=== PATIENT | female | born 1980 | race American Indian/Alaskan Native ===

== ENCOUNTER 2019-01-14 15:26 | Inpatient (IN) | payer OTHER ==
--- NOTE | 2019-01-14 15:38 | Event Note ---
ED Screening Note Date of service: 01/14/19 Time: 15:37 ED Screening Note: 38 y o female presents with rectal pain x 5 days thast getting worse pt states unable to sit down due to pain no BM in 5 days This initial assessment/diagnostic orders/clinical plan/treatment(s) is/are subject to change based on patients health status, clinical progression and re- assessment by fellow clinical providers in the ED. Further treatment and workup at subsequent clinical providers discretion. Patient/guardian urged not to elope from the ED as their condition may be serious if not clinically assessed and managed. Initial orders include: ACC eval
[2019-01-14] MEDS ORDERED: TORADOL IV ONE (16:55)
--- NOTE | 2019-01-14 17:06 | Emergency Department Report ---
ED General Adult HPI - General Chief complaint: Rectal Pain Stated complaint: HEMORRHOIDS/PAIN Time Seen by Provider: 01/14/19 15:36 Source: patient Mode of arrival: Ambulatory Limitations: No Limitations - History of Present Illness Initial comments: 38-year-old obese female with a history of a hysterectomy presents to the hospital complaints of rectal pain and hemorrhoids. Patient states that "hemorrhoid" occurred Tue and seemed to resolve by i.e. 4 days ago. Yesterday hugo hemorrhoid returned and was more painful and increase in size. Pain is rated 10/10 in intensity, constant, worse with palpation and direct pressure. Patient states she has been eating very little and only drink of fluids because she is afraid to have a bowel movement. She has tried various [id number] medications topical medication including preparation H regular and maximum strength, cleaning wipes, lidocaine without relief. Patient reports minimum bleeding. Last hemorrhoid was over 19 years ago with . She denies receptive anal intercourse. Patient presents with elevated blood pressure and denies previous history but also states she is in a lot of pain. Pt complains of intermittent sweating in the mornings since Tuesday but no rep orts of fever. Severity scale (0 -10): 10 - Related Data Allergies Allergy/AdvReac Type Severity Reaction Status Date / Time No Known Allergies Allergy Verified 01/14/19 17:45 ED Review of Systems ROS: Stated complaint: HEMORRHOIDS/PAIN Other details as noted in HPI Comment: All other systems reviewed and negative ED Past Medical Hx - Past Medical History Previous Medical History?: No - Surgical History Past Surgical History?: Yes Additional Surgical History: hysterectomy - Social History Smoking Status: Never Smoker Substance Use Type: Marijuana ED Physical Exam - General Limitations: No Limitations - Other Other exam information: General: No acute distress Head: Atraumatic Eyes: Normal appearance, Pupils equal and reactive to light, extraocular movements intact ENT: Normal oropharynx Neck: Normal appearance, no posterior or midline tenderness, no meningismus Chest: Clear to auscultation bilaterally, no wheezes, rales, or crackles CV: Regular rate and rhythm Abdomen: soft, nontender, nondistended, no rebound or guarding Rectal: Large hemorrhoid at 12 o'clock position that is pink and tender to palpation and soft. No active bleeding. Skin tag noted at lower anal area. Back: Nontender Extremity: Normal inspection, full range of motion, nontender Neuro: Alert and oriented 3, speech clear, no gross motor or sensory deficit Skin: No rash, redness, warmth ED Course Vital Signs 01/14/19 01/14/19 01/14/19 15:37 16:39 17:14 Temperature 99.7 F H Pulse Rate 118 H 112 H Respiratory 18 20 18 Rate Blood Pressure 191/121 Blood Pressure 175/106 167/99 [Right] O2 Sat by Pulse 100 95 99 Oximetry 01/14/19 01/14/19 17:32 17:51 Temperature 100.8 F H Pulse Rate 82 Respiratory 18 18 Rate Blood Pressure Blood Pressure 146/86 138/97 [Right] O2 Sat by Pulse 100 98 Oximetry - Consultations Consultation #1: 01/14/19 20:14 Dr. Anna chung consulted for I and D of perianal abscess during admission ED Medical Decision Making - Lab Data Result diagrams: 01/14/19 17:06 01/14/19 17:06 Lab Results 01/14/19 01/14/19 01/14/19 Range/Units 17:06 17:06 17:35 WBC 25.7 H (4.5-11.0) K/mm3 RBC 4.67 (3.65-5.03) M/mm3 Hgb 13.6 (10.1-14.3) gm/dl Hct 39.7 (30.3-42.9) % MCV 85 (79-97) fl MCH 29 (28-32) pg MCHC 34 (30-34) % RDW 13.3 (13.2-15.2) % Plt Count 402 (140-440) K/mm3 Add Manual Diff Complete Total Counted 200 Seg Neuts % (Manual) 85.0 H (40.0-70.0) % Band Neutrophils % 2.0 % Lymphocytes % (Manual) 7.0 L (13.4-35.0) % Reactive Lymphs % (Man) 0 % Monocytes % (Manual) 6.0 (0.0-7.3) % Eosinophils % (Manual) 0 (0.0-4.3) % Basophils % (Manual) 0 (0.0-1.8) % Metamyelocytes % 0 % Myelocytes % 0 % Promyelocytes % 0 % Blast Cells % 0 % Nucleated RBC % Not Reportable Seg Neutrophils # Man 21.8 H (1.8-7.7) K/mm3 Band Neutrophils # 0.5 K/mm3 Lymphocytes # (Manual) 1.8 (1.2-5.4) K/mm3 Abs React Lymphs (Man) 0.0 K/mm3 Monocytes # (Manual) 1.5 H (0.0-0.8) K/mm3 Eosinophils # (Manual) 0.0 (0.0-0.4) K/mm3 Basophils # (Manual) 0.0 (0.0-0.1) K/mm3 Metamyelocytes # 0.0 K/mm3 Myelocytes # 0.0 K/mm3 Promyelocytes # 0.0 K/mm3 Blast Cells # 0.0 K/mm3 WBC Morphology Not Reportable Hypersegmented Neuts Not Reportable Hyposegmented Neuts Not Reportable Hypogranular Neuts Not Reportable Smudge Cells Not Reportable Toxic Granulation Not Reportable Toxic Vacuolation Not Reportable Dohle Bodies Not Reportable Pelger-Huet Anomaly Not Reportable Fe Rods Not Reportable Platelet Estimate Consistent w auto Clumped Platelets Not Reportable Plt Clumps, EDTA Not Reportable Large Platelets Few Giant Platelets Few Platelet Satelliting Not Reportable Plt Morphology Comment Not Reportable RBC Morphology Not Reportable Dimorphic RBCs Not Reportable Polychromasia Not Reportable Hypochromasia Not Reportable Poikilocytosis Few Anisocytosis Not Reportable Microcytosis Not Reportable Macrocytosis Not Reportable Spherocytes Not Reportable Pappenheimer Bodies Not Reportable Sickle Cells Not Reportable Target Cells Rare Tear Drop Cells Not Reportable Ovalocytes Few Helmet Cells Not Reportable Gleason-Aspen Bodies Not Reportable Emory Rings Not Reportable Romaine Cells Few Bite Cells Not Reportable Crenated Cell Not Reportable Elliptocytes Not Reportable Acanthocytes (Spur) Not Reportable Rouleaux Not Reportable Hemoglobin C Crystals Not Reportable Schistocytes Not Reportable Malaria parasites Not Reportable Buddy Bodies Not Reportable Hem Pathologist Commnt No VBG pH (7.320-7.420) Sodium 136 L (137-145) mmol/L Potassium 3.9 (3.6-5.0) mmol/L Chloride 95.9 L (98-107) mmol/L Carbon Dioxide 27 (22-30) mmol/L Anion Gap 17 mmol/L BUN 6 L (7-17) mg/dL Creatinine 0.9 (0.7-1.2) mg/dL Estimated GFR > 60 ml/min BUN/Creatinine Ratio 7 % Glucose 132 H (65-100) mg/dL Lactic Acid 1.10 (0.7-2.0) mmol/L Calcium 9.7 (8.4-10.2) mg/dL 01/14/19 Range/Units 17:35 WBC (4.5-11.0) K/mm3 RBC (3.65-5.03) M/mm3 Hgb (10.1-14.3) gm/dl Hct (30.3-42.9) % MCV (79-97) fl MCH (28-32) pg MCHC (30-34) % RDW (13.2-15.2) % Plt Count (140-440) K/mm3 Add Manual Diff Total Counted Seg Neuts % (Manual) (40.0-70.0) % Band Neutrophils % % Lymphocytes % (Manual) (13.4-35.0) % Reactive Lymphs % (Man) % Monocytes % (Manual) (0.0-7.3) % Eosinophils % (Manual) (0.0-4.3) % Basophils % (Manual) (0.0-1.8) % Metamyelocytes % % Myelocytes % % Promyelocytes % % Blast Cells % % Nucleated RBC % Seg Neutrophils # Man (1.8-7.7) K/mm3 Band Neutrophils # K/mm3 Lymphocytes # (Manual) (1.2-5.4) K/mm3 Abs React Lymphs (Man) K/mm3 Monocytes # (Manual) (0.0-0.8) K/mm3 Eosinophils # (Manual) (0.0-0.4) K/mm3 Basophils # (Manual) (0.0-0.1) K/mm3 Metamyelocytes # K/mm3 Myelocytes # K/mm3 Promyelocytes # K/mm3 Blast Cells # K/mm3 WBC Morphology Hypersegmented Neuts Hyposegmented Neuts Hypogranular Neuts Smudge Cells Toxic Granulation Toxic Vacuolation Dohle Bodies Pelger-Huet Anomaly Fe Rods Platelet Estimate Clumped Platelets Plt Clumps, EDTA Large Platelets Giant Platelets Platelet Satelliting Plt Morphology Comment RBC Morphology Dimorphic RBCs Polychromasia Hypochromasia Poikilocytosis Anisocytosis Microcytosis Macrocytosis Spherocytes Pappenheimer Bodies Sickle Cells Target Cells Tear Drop Cells Ovalocytes Helmet Cells Gleason-Aspen Bodies Emory Rings [place] Cells Bite Cells Crenated Cell Elliptocytes Acanthocytes (Spur) Rouleaux Hemoglobin C Crystals Schistocytes Malaria parasites Buddy Bodies Hem Pathologist Commnt VBG pH 7.458 H (7.320-7.420) Sodium (137-145) mmol/L Potassium (3.6-5.0) mmol/L Chloride (98-107) mmol/L Carbon Dioxide (22-30) mmol/L Anion Gap mmol/L BUN (7-17) mg/dL Creatinine (0.7-1.2) mg/dL Estimated GFR ml/min BUN/Creatinine Ratio % Glucose (65-100) mg/dL Lactic Acid (0.7-2.0) mmol/L Calcium (8.4-10.2) mg/dL - EKG Data -: EKG Interpreted by [facility] EKG shows normal: sinus rhythm (q), axis (qrs 14), QRS complexes (qrsd 14), ST-T waves (no stemi) Rate: normal (89) - Radiology Data Radiology results: report reviewed CT abdomen pelvis w con INDICATION / CLINICAL INFORMATION: anal/rectal abscess. TECHNIQUE: Axial CT imaging of abdomen and pelvis was obtained with IV contrast. Coronal and sagittal reformatted imaging obtained and reviewed. All CT scans at this location are performed using CT dose reduction for ALARA by means of automated exposure control. COMPARISON: None available. FINDINGS: CT abdomen with contrast demonstrates grossly normal appearance of the liver, spleen, pancreas, kidneys, and adrenal glands. No gallbladder abnormality identified. CT scan of the pelvis demonstrates a low-density mass surrounding the anus consistent with perianal abscess. Abscess measures approximately 6 cm in diameter. There is prominent inflammatory change in the bilateral fat adjacent to the abscess. The remainder of the pelvis is unremarkable. No pelvic mass or free fluid identified. Mild inguinal adenopathy is noted within likely reactive from the perianal abscess. Visualized lung bases are grossly clear. No significant skeletal abnormality. IMPRESSION: 1. . Perianal abscess measuring approximately 6 cm. 2. Mild bilateral inguinal adenopathy, most likely reactive. - Medical Decision Making Patient with perianal abscess requiring drainage and significant leukocytosis. Normal Lactic acid and blood pressure however with no signs of septic shock. Patient treated with vancomycin and Zosyn. Gen. surgery consultation for drainage of perianal abscess. Patient treated with Toradol, Dilaudid, and Zofra n for pain. BP improving with pain control. - Differential Diagnosis hemorrhoid, rectal abscess, anal abscess Critical Care Time: No Critical care attestation.: If time is entered above; I have spent that time in minutes in the direct care of this critically ill patient, excluding procedure time. ED Disposition Clinical Impression: Perianal abscess, Sepsis, Anal pain Disposition: [id number] OP ADMIT IP TO THIS HOSP Is pt being admited?: Yes Condition: Stable Time of Disposition: 20:13 (Dr claudio/hosp)
[2019-01-14 17:18] LABS: Hematocrit 39.7 % (30.3-42.9); Hemoglobin 13.6 gm/dl (10.1-14.3); Mean Corpuscular HGB Conc 34 % (30-34); Mean Corpuscular Volume 85 fl (79-97); Platelet Count 402 K/mm3 (140-440); Red Blood Count 4.67 M/mm3 (3.65-5.03); Red Cell Distribution Width 13.3 % (13.2-15.2)
[2019-01-14] MEDS ORDERED: NACL 0.9% 1000 ML IV ONE (17:28)
[2019-01-14] MEDS ORDERED: VANCOMYCIN/NS 1 GM/250 ML 1 GM/250 ML BAG IV ONE (17:30)
[2019-01-14] MEDS ORDERED: ZOSYN/NS 4.5GM/100ML 4.5 GM/100 ML VIAL IV ONE (17:30)
[2019-01-14 17:38] LABS: BUN/Creatinine Ratio 7; Blood Urea Nitrogen 6 mg/dL (7-17); Calcium 9.7 mg/dL (8.4-10.2); Hemolysis Index 16
[2019-01-14] MEDS ORDERED: DILAUDID ONE (17:40)
[2019-01-14] MEDS ORDERED: DILAUDID IV ONE (17:53)
[2019-01-14 18:08] LABS: Band Neutrophils # (Manual) 0.5 K/mm3; Basophils % (Manual) 0 % (0.0-1.8); Eosinophils % (Manual) 0 % (0.0-4.3); Poikilocytosis Few; Total Cells Counted 200
[2019-01-14 18:09] LABS: Burr Cells Few; Giant Platelets Few; Large Platelets Few; Ovalocytes Few; Platelet Estimate Consistent w Auto; Target Cells Rare
[2019-01-14] MEDS ORDERED: TYLENOL PO ONE (18:11)
--- NOTE | 2019-01-14 19:54 | Cat Scan Report ---
CT abdomen pelvis w con INDICATION / CLINICAL INFORMATION: anal/rectal abscess. TECHNIQUE: Axial CT imaging of abdomen and pelvis was obtained with IV contrast. Coronal and sagittal reformatte d imaging obtained and reviewed. All CT scans at this location are performed using CT dose reduction for ALARA by means of automated exposure control. COMPARISON: None available. FINDINGS: CT abdomen with contrast demonstrates grossly normal appearance of the liver, spleen, pancreas, kidne ys, and adrenal glands. No gallbladder abnormality identified. CT scan of the pelvis demonstrates a low-density mass surrounding the anus consistent with perianal a bscess. Abscess measures approximately 6 cm in diameter. There is prominent inflammatory change in th e bilateral fat adjacent to the abscess. The remainder of the pelvis is unremarkable. No pelvic mass or free fluid identified. Mild inguinal a denopathy is noted within likely reactive from the perianal abscess. Visualized lung bases are grossly clear. No significant skeletal abnormality. IMPRESSION: 1. . Perianal abscess measuring approximately 6 cm. 2. Mild bilateral inguinal adenopathy, most likely reactive. Signer Name: Nataly Turner MD Signed: 01/14/2019 7:49 PM Workstation Name: [id number]
[2019-01-14] MEDS ORDERED: ASPIRIN PO ONE (20:09)
[2019-01-14] MEDS ORDERED: ZOFRAN IV PRN (20:11)
[2019-01-14] MEDS ORDERED: TYLENOL PO PRN (20:11)
[2019-01-14] MEDS ORDERED: PERCOCET 5/325 PO PRN (20:11)
[2019-01-14] MEDS ORDERED: SODIUM CHLORIDE FLUSH SYRINGE 10 ML IV PRN (20:11)
--- NOTE | 2019-01-14 20:11 | History and Physical Report ---
History of Present Illness Date of examination: 01/14/19 Date of admission: 01/14/19 Chief complaint: Severe pain in the perianal area along with swelling . History of present illness: 38-year-old obese female with a history of a hysterectomy presents to the hospital complaints of rectal pain and hemorrhoids.Patient complaints of Parirectal swelling which she thinks is thrombosed Hemorrhoid. Has a fluctuant mass c/w abscess on perianal area.Low grade fever present.Pain is 10/10. Past Medical History Previous Medical History?: No Surgical History Past Surgical History?: Yes Additional Surgical History: hysterectomy Family History HtN Social History Smoking Status: Never Smoker Substance Use Type: Marijuana Review of Systems ROS: Stated complaint: HEMORRHOIDS/PAIN Other details as noted in HPI All other systems reviewed and negative Medications and Allergies Allergies Allergy/AdvReac Type Severity Reaction Status Date / Time No Known Allergies Allergy Verified 01/14/19 17:45 Exam - Constitutional Vitals: Temp Pulse Resp BP Pulse Ox 100.8 F H 82 18 138/97 98 01/14/19 17:51 01/14/19 17:51 01/14/19 17:51 01/14/19 17:51 01/14/19 17:51 General appearance: Present: no acute distress, well-nourished - EENT Eyes: Present: PERRL ENT: hearing intact, clear oral mucosa - Neck Neck: Present: supple, normal ROM - Respiratory Respiratory effort: normal Respiratory: bilateral: CTA - Cardiovascular Heart rate: 78 Heart Sounds: Present: S1 & S2. Absent: rub, click - Extremities Extremities: no ischemia, pulses symmetrical, No edema Peripheral Pulses: within normal limits - Abdominal General gastrointestinal: Present: soft, non-tender, non-distended, normal bowel sounds, other Female genitourinary: Present: normal - Integumentary Integumentary: Present: clear, warm, dry - Musculoskeletal Musculoskeletal: gait normal, strength equal bilaterally - Psychiatric Psychiatric: appropriate mood/affect, intact judgment & insight - Neurologic Neurologic: CNII-XII intact, moves all extremities Results - Labs CBC & Chem 7: 01/15/19 04:23 01/15/19 04:23 Labs: Laboratory Last Values WBC 25.7 K/mm3 (4.5-11.0) H 01/14/19 17:06 RBC 4.67 M/mm3 (3.65-5.03) 01/14/19 17:06 Hgb 13.6 gm/dl (10.1-14.3) 01/14/19 17:06 Hct 39.7 % (30.3-42.9) 01/14/19 17:06 MCV 85 fl (79-97) 01/14/19 17:06 MCH 29 pg (28-32) 01/14/19 17:06 MCHC 34 % (30-34) 01/14/19 17:06 RDW 13.3 % (13.2-15.2) 01/14/19 17:06 Plt Count 402 K/mm3 (140-440) 01/14/19 17:06 Add Manual Diff Complete 01/14/19 17:06 Total Counted 200 01/14/19 17:06 Seg Neuts % (Manual) 85.0 % (40.0-70.0) H 01/14/19 17:06 2.0 % 01/14/19 17:06 7.0 % (13.4-35.0) L 01/14/19 17:06 Reactive Lymphs % (Man) 0 % 01/14/19 17:06 6.0 % (0.0-7.3) 01/14/19 17:06 0 % (0.0-4.3) 01/14/19 17:06 0 % (0.0-1.8) 01/14/19 17:06 0 % 01/14/19 17:06 0 % 01/14/19 17:06 0 % 01/14/19 17:06 0 % 01/14/19 17:06 Nucleated RBC % Not Reportable 01/14/19 17:06 Seg Neutrophils # Man 21.8 K/mm3 (1.8-7.7) H 01/14/19 17:06 Band Neutrophils # 0.5 K/mm3 01/14/19 17:06 1.8 K/mm3 (1.2-5.4) 01/14/19 17:06 Abs React Lymphs (Man) 0.0 K/mm3 01/14/19 17:06 1.5 K/mm3 (0.0-0.8) H 01/14/19 17:06 0.0 K/mm3 (0.0-0.4) 01/14/19 17:06 0.0 K/mm3 (0.0-0.1) 01/14/19 17:06 0.0 K/mm3 01/14/19 17:06 0.0 K/mm3 01/14/19 17:06 0.0 K/mm3 01/14/19 17:06 Blast Cells # 0.0 K/mm3 01/14/19 17:06 WBC Morphology Not Reportable 01/14/19 17:06 Hypersegmented Neuts Not Reportable 01/14/19 17:06 Hyposegmented Neuts Not Reportable 01/14/19 17:06 Hypogranular Neuts Not Reportable 01/14/19 17:06 Not Reportable 01/14/19 17:06 Not Reportable 01/14/19 17:06 Not Reportable 01/14/19 17:06 Not Reportable 01/14/19 17:06 Not Reportable 01/14/19 17:06 Not Reportable 01/14/19 17:06 Consistent w auto 01/14/19 17:06 Not Reportable 01/14/19 17:06 Plt Clumps, EDTA Not Reportable 01/14/19 17:06 Few 01/14/19 17:06 Few 01/14/19 17:06 Not Reportable 01/14/19 17:06 Plt Morphology Comment Not Reportable 01/14/19 17:06 RBC Morphology Not Reportable 01/14/19 17:06 Dimorphic RBCs Not Reportable 01/14/19 17:06 Not Reportable 01/14/19 17:06 Not Reportable 01/14/19 17:06 Few 01/14/19 17:06 Not Reportable 01/14/19 17:06 Not Reportable 01/14/19 17:06 Not Reportable 01/14/19 17:06 Not Reportable 01/14/19 17:06 Not Reportable 01/14/19 17:06 Not Reportable 01/14/19 17:06 Rare 01/14/19 17:06 Not Reportable 01/14/19 17:06 Few 01/14/19 17:06 Not Reportable 01/14/19 17:06 Not Reportable 01/14/19 17:06 Not Reportable 01/14/19 17:06 Few 01/14/19 17:06 Not Reportable 01/14/19 17:06 Not Reportable 01/14/19 17:06 Not Reportable 01/14/19 17:06 Acanthocytes (Spur) Not Reportable 01/14/19 17:06 Rouleaux Not Reportable 01/14/19 17:06 Not Reportable 01/14/19 17:06 Not Reportable 01/14/19 17:06 Not Reportable 01/14/19 17:06 Not Reportable 01/14/19 17:06 Hem Pathologist Commnt No 01/14/19 17:06 VBG pH 7.458 (7.320-7.420) H 01/14/19 17:35 Sodium 136 mmol/L (137-145) L 01/14/19 17:06 Potassium 3.9 mmol/L (3.6-5.0) 01/14/19 17:06 Chloride 95.9 mmol/L (98-107) L 01/14/19 17:06 Carbon Dioxide 27 mmol/L (22-30) 01/14/19 17:06 17 mmol/L 01/14/19 17:06 BUN 6 mg/dL (7-17) L 01/14/19 17:06 0.9 mg/dL (0.7-1.2) 01/14/19 17:06 Estimated GFR > 60 ml/min 01/14/19 17:06 7 % 01/14/19 17:06 Glucose 132 mg/dL (65-100) H 01/14/19 17:06 Lactic Acid 1.10 mmol/L (0.7-2.0) 01/14/19 17:35 Calcium 9.7 mg/dL (8.4-10.2) 01/14/19 17:06 - Imaging and Cardiology CT scan - abdomen: report reviewed Imaging and Cardiology: CT Abdomen CT scan of the pelvis demonstrates a low-density mass surrounding the anus consistent with perianal abscess. Abscess measures approximately 6 cm in diameter. There is prominent inflammatory change in the bilateral fat adjacent to the abscess. The remainder of the pelvis is unremarkable. No pelvic mass or free fluid identified. Mild inguinal adenopathy is noted within likely reactive from the perianal abscess. Visualized lung bases are grossly clear. No significant skeletal abnormality. IMPRESSION: 1. . Perianal abscess measuring approximately 6 cm. 2. Mild bilateral inguinal adenopathy, most likely reactive. Assessment and Plan Advance Directives: Yes (Full code) VTE prophylaxis?: Chemical Plan of care discussed with patient/family: Yes - Patient Problems (1) Perianal abscess Current Visit: Yes Status: Acute Plan to address problem: Needs I and D under GA Strted on IV abx Unasyn and vancomycin IV Surgery consulted (2) SIRS (systemic inflammatory response syndrome) Current Visit: Yes Status: Acute Plan to address problem: Patient's clinical picture c/w SIRS Has High white count IV abx --Unasyn and IV V ancomycin for now. (3) Hyponatremia Current Visit: Yes Status: Acute Plan to address problem: Very mild Should correct with IV NS (4) Malnutrition Current Visit: Yes Status: Chronic Qualifiers: Protein-calorie malnutrition severity: moderate Plan to address problem: Dietary supplements ordered (5) DVT prophylaxis Current Visit: Yes Status: Acute Plan to address problem: SCD's for now and Gi prophylaxis
--- NOTE | 2019-01-14 20:24 | Event Note ---
Date: 01/14/[address] Smart. Pt added on to tomorrow's schedule for I&D. Resuscitate tonight. Hold Lovenox for now to minimize carlos-op bleeding tomorrow.
[2019-01-14] MEDS ORDERED: NACL 0.45% 1000 ML 1,000 ML IV SCH (23:45)
[2019-01-15] MEDS: DILAUDID IV PRN (00:08)
[2019-01-15] MEDS: SODIUM CHLORIDE FLUSH SYRINGE 10 ML IV SCH ×3 (00:09→22:28)
[2019-01-15 04:52] LABS: Hematocrit 35.1 % (30.3-42.9); Hemoglobin 11.8 gm/dl (10.1-14.3); Mean Corpuscular HGB Conc 34 % (30-34); Mean Corpuscular Volume 86 fl (79-97); Platelet Count 375 K/mm3 (140-440); Red Cell Distribution Width 13.3 % (13.2-15.2)
[2019-01-15 05:18] LABS: Alanine Aminotransferase 11 units/L (7-56); BUN/Creatinine Ratio 6; Blood Urea Nitrogen 5 mg/dL (7-17); Calcium 8.7 mg/dL (8.4-10.2); Hemolysis Index 0
[2019-01-15 06:11] LABS: Basophils % (Manual) 0 % (0.0-1.8); Platelet Estimate Consistent w Auto; RBC Morphology Normal; Total Cells Counted 100
--- NOTE | 2019-01-15 08:32 | Progress Note ---
Assessment and Plan Assessment and plan: 38-year-old obese female with a history of a hysterectomy presents to the hospital complaints of rectal pain and swelling perirectal abscess/sepsis -for I and D today, abx hemorrhoids high fiber diet recommended dvt ppx- early ambulation and scds History Interval history: c/o perirectal pain no fever no cp, no cough Hospitalist Physical - Constitutional Vitals: Temp Pulse Resp BP Pulse Ox 98.6 F 73 17 150/92 99 01/15/19 05:21 01/15/19 05:21 01/15/19 05:21 01/15/19 05:21 01/15/19 05:21 General appearance: Present: no acute distress, well-nourished - EENT Eyes: Present: PERRL ENT: hearing intact - Neck Neck: Present: normal ROM - Respiratory Respiratory: bilateral: CTA - Cardiovascular Rhythm: regular Heart Sounds: Present: S1 & S2 - Extremities Extremities: no ischemia Peripheral Pulses: within normal limits - Abdominal General gastrointestinal: soft, non-tender, other (perirectal fluctuant swelling) - Integumentary Integumentary: Present: clear, warm - Psychiatric Psychiatric: appropriate mood/affect, intact judgment & insight - Neurologic Neurologic: CNII-XII intact, moves all extremities Results - Labs CBC & Chem 7: 01/15/19 04:23 01/15/19 04:23 Labs: Laboratory Last Values WBC 24.1 K/mm3 (4.5-11.0) H 01/15/19 04:23 RBC 4.10 M/mm3 (3.65-5.03) 01/15/19 04:23 Hgb 11.8 gm/dl (10.1-14.3) 01/15/19 04:23 Hct 35.1 % (30.3-42.9) 01/15/19 04:23 MCV 86 fl (79-97) 01/15/19 04:23 MCH 29 pg (28-32) 01/15/19 04:23 MCHC 34 % (30-34) 01/15/19 04:23 RDW 13.3 % (13.2-15.2) 01/15/19 04:23 Plt Count 375 K/mm3 (140-440) 01/15/19 04:23 Add Manual Diff Complete 01/15/19 04:23 Total Counted 100 01/15/19 04:23 Seg Neuts % (Manual) 89.0 % (40.0-70.0) H 01/15/19 04:23 0 % 01/15/19 04:23 7.0 % (13.4-35.0) L 01/15/19 04:23 Reactive Lymphs % (Man) 0 % 01/15/19 04:23 3.0 % (0.0-7.3) 01/15/19 04:23 1.0 % (0.0-4.3) 01/15/19 04:23 0 % (0.0-1.8) 01/15/19 04:23 0 % 01/15/19 04:23 0 % 01/15/19 04:23 0 % 01/15/19 04:23 0 % 01/15/19 04:23 Nucleated RBC % Not Reportable 01/15/19 04:23 Seg Neutrophils # Man 21.4 K/mm3 (1.8-7.7) H 01/15/19 04:23 Band Neutrophils # 0.0 K/mm3 01/15/19 04:23 1.7 K/mm3 (1.2-5.4) 01/15/19 04:23 Abs React Lymphs (Man) 0.0 K/mm3 01/15/19 04:23 0.7 K/mm3 (0.0-0.8) 01/15/19 04:23 0.2 K/mm3 (0.0-0.4) 01/15/19 04:23 0.0 K/mm3 (0.0-0.1) 01/15/19 04:23 0.0 K/mm3 01/15/19 04:23 0.0 K/mm3 01/15/19 04:23 0.0 K/mm3 01/15/19 04:23 Blast Cells # 0.0 K/mm3 01/15/19 04:23 WBC Morphology Not Reportable 01/15/19 04:23 Hypersegmented Neuts Not Reportable 01/15/19 04:23 Hyposegmented Neuts Not Reportable 01/15/19 04:23 Hypogranular Neuts Not Reportable 01/15/19 04:23 Not Reportable 01/15/19 04:23 Not Reportable 01/15/19 04:23 Not Reportable 01/15/19 04:23 Not Reportable 01/15/19 04:23 Not Reportable 01/15/19 04:23 Not Reportable 01/15/19 04:23 Consistent w auto 01/15/19 04:23 Not Reportable 01/15/19 04:23 Plt Clumps, EDTA Not Reportable 01/15/19 04:23 Not Reportable 01/15/19 04:23 Not Reportable 01/15/19 04:23 Not Reportable 01/15/19 04:23 Plt Morphology Comment Not Reportable 01/15/19 04:23 RBC Morphology Normal 01/15/19 04:23 Dimorphic RBCs Not Reportable 01/15/19 04:23 Not Reportable 01/15/19 04:23 Not Reportable 01/15/19 04:23 Not Reportable 01/15/19 04:23 Not Reportable 01/15/19 04:23 Not Reportable 01/15/19 04:23 Not Reportable 01/15/19 04:23 Not Reportable 01/15/19 04:23 Not Reportable 01/15/19 04:23 Not Reportable 01/15/19 04:23 Not Reportable 01/15/19 04:23 Not Reportable 01/15/19 04:23 Not Reportable 01/15/19 04:23 Not Reportable 01/15/19 04:23 Not Reportable 01/15/19 04:23 Not Reportable 01/15/19 04:23 Not Reportable 01/15/19 04:23 Not Reportable 01/15/19 04:23 Not Reportable 01/15/19 04:23 Not Reportable 01/15/19 04:23 Acanthocytes (Spur) Not Reportable 01/15/19 04:23 Rouleaux Not Reportable 01/15/19 04:23 Not Reportable 01/15/19 04:23 Not Reportable 01/15/19 04:23 Not Reportable 01/15/19 04:23 Not Reportable 01/15/19 04:23 Hem Pathologist Commnt No 01/15/19 04:23 VBG pH 7.458 (7.320-7.420) H 01/14/19 17:35 Sodium 140 mmol/L (137-145) 01/15/19 04:23 Potassium 3.8 mmol/L (3.6-5.0) 01/15/19 04:23 Chloride 102.5 mmol/L (98-107) 01/15/19 04:23 Carbon Dioxide 29 mmol/L (22-30) 01/15/19 04:23 12 mmol/L 01/15/19 04:23 BUN 5 mg/dL (7-17) L 01/15/19 04:23 0.8 mg/dL (0.7-1.2) 01/15/19 04:23 Estimated GFR > 60 ml/min 01/15/19 04:23 6 % 01/15/19 04:23 Glucose 106 mg/dL (65-100) H 01/15/19 04:23 5.3 % (4-6) 01/14/19 17:06 Lactic Acid 0.90 mmol/L (0.7-2.0) 01/14/19 20:04 Calcium 8.7 mg/dL (8.4-10.2) 01/15/19 04:23 0.60 mg/dL (0.1-1.2) 01/15/19 04:23 AST 12 units/L (5-40) 01/15/19 04:23 ALT 11 units/L (7-56) 01/15/19 04:23 84 units/L (35-129) 01/15/19 04:23 6.7 g/dL (6.3-8.2) 01/15/19 04:23 3.0 g/dL (3.9-5) L 01/15/19 04:23 0.8 % 01/15/19 04:23 Active Medications - Current Medications Current Medications: Generic Name Dose Route Start Last Admin Trade Name Freq PRN Reason Stop Dose Admin Acetaminophen 650 mg 01/14/19 20:11 Tylenol PO Q4H PRN Pain MILD(1-3)/Fever >100.5/GANT Hydromorphone HCl 0.5 mg 01/14/19 20:11 01/15/19 00:08 Dilaudid IV 0.5 mg Q3H PRN Administration Pain , Severe (7-10) Sodium Chloride 1,000 mls @ 75 mls/hr 01/14/19 23:45 01/15/19 00:10 Nacl 0.45% 1000 Ml IV 75 mls/hr DIRECT NADYA Administration Ondansetron HCl 4 mg 01/14/19 20:11 Zofran IV Q3H PRN Nausea And Vomiting Oxycodone/Acetaminophen 1 tab 01/14/19 20:11 Percocet 5/325 PO Q6H PRN Pain, Moderate (4-6) Sodium Chloride 10 ml 01/14/19 22:00 01/15/19 00:09 Sodium Chloride Flush Syringe 10 Ml IV 10 ml BID NADYA Administration Sodium Chloride 10 ml 01/14/19 20:11 Sodium Chloride Flush Syringe 10 Ml IV PRN PRN LINE FLUSH
--- NOTE | 2019-01-15 08:42 | Consultation ---
History of Present Illness Consult date: 01/15/19 Reason for consult: other (perianal pain) Requesting physician: FLAVIO COLON Chief complaint: perianal pain - History of present illness History of present illness: 38yo F, healthy, presents with acute onset of perianal pain that initially began last Tuesday. It got better briefly, but then worsened a couple of days later. Has been draining blood. Had similar problem after of child in 2005. Had large hemorrhoid at that time. Denies F/C/N/V/. Past History Past Medical History: No medical history Past Surgical History: hysterectomy (robotic - 2013 - [facility]) Social history: other (occasional alcohol). denies: smoking Family history: no significant family history Medications and Allergies Allergies Allergy/AdvReac Type Severity Reaction Status Date / Time No Known Allergies Allergy Verified 01/14/19 17:45 Active Meds: Active Medications Acetaminophen (Tylenol) 650 mg PO Q4H PRN PRN Reason: Pain MILD(1-3)/Fever >100.5/GANT Hydromorphone HCl (Dilaudid) 0.5 mg IV Q3H PRN PRN Reason: Pain , Severe (7-10) Last Admin: 01/15/19 00:08 Dose: 0.5 mg Documented by: Sodium Chloride (Nacl 0.45% 1000 Ml) 1,000 mls @ 75 mls/hr IV DIRECT [facility] Last Admin: 01/15/19 00:10 Dose: 75 mls/hr Documented by: Ondansetron HCl (Zofran) 4 mg IV Q3H PRN PRN Reason: Nausea And Vomiting Oxycodone/Acetaminophen (Percocet 5/325) 1 tab PO Q6H PRN PRN Reason: Pain, Moderate (4-6) Sodium Chloride (Sodium Chloride Flush Syringe 10 Ml) 10 ml IV BID NADYA Last Admin: 01/15/19 00:09 Dose: 10 ml Documented by: Sodium Chloride (Sodium Chloride Flush Syringe 10 Ml) 10 ml IV PRN PRN PRN Reason: LINE FLUSH Review of Systems - Constitutional no fever, no chills, no sweats, no night sweats, no chronic pain - Cardiovascular no chest pain, no shortness of breath - Respiratory no cough - Gastrointestinal change in bowel habits, BRBPR, no abdominal pain, no nausea, no vomiting - Muskuloskeletal no low back pain - Integumentary no rash, no sores, no wounds Exam Vital Signs Temp Pulse Resp BP Pulse Ox 99.7 F H 118 H 18 191/121 100 01/14/19 15:37 01/14/19 15:37 01/14/19 15:37 01/14/19 15:37 01/14/19 15:37 - General physical appearance Positive: no distress, no pain, other (pleasant) - Eyes Positive: normal occular movement - Respiratory Positive: normal expansion, normal respiratory effort, clear to auscultation - Cardiovascular Rhythm: regular - Abdomen Abdomen: Present: soft. Absent: tender - Rectum Rectum: mass (large, tender mass. +bloody drainage. Smaller skin tag seen. ) - Neurologic Neurologic: alert and oriented to time, place and person, motor strength and se nsation are grossly intact - Psychiatric Psychiatric: appropriate mood/affect, intact judgment & insight, cooperative Results - Labs 01/15/19 04:23 01/15/19 04:23 Abnormal lab results 01/14/19 01/14/19 01/14/19 Range/Units 17:06 17:06 17:35 WBC 25.7 H (4.5-11.0) K/mm3 Seg Neuts % (Manual) 85.0 H (40.0-70.0) % Lymphocytes % (Manual) 7.0 L (13.4-35.0) % Seg Neutrophils # Man 21.8 H (1.8-7.7) K/mm3 Monocytes # (Manual) 1.5 H (0.0-0.8) K/mm3 VBG pH 7.458 H (7.320-7.420) Sodium 136 L (137-145) mmol/L Chloride 95.9 L (98-107) mmol/L BUN 6 L (7-17) mg/dL Glucose 132 H (65-100) mg/dL Albumin (3.9-5) g/dL 01/15/19 01/15/19 Range/Units 04:23 04:23 WBC 24.1 H (4.5-11.0) K/mm3 Seg Neuts % (Manual) 89.0 H (40.0-70.0) % Lymphocytes % (Manual) 7.0 L (13.4-35.0) % Seg Neutrophils # Man 21.4 H (1.8-7.7) K/mm3 Monocytes # (Manual) (0.0-0.8) K/mm3 VBG pH (7.320-7.420) Sodium (137-145) mmol/L Chloride (98-107) mmol/L BUN 5 L (7-17) mg/dL Glucose 106 H (65-100) mg/dL Albumin 3.0 L (3.9-5) g/dL Diabetes panel 01/14/19 01/14/19 01/15/19 Range/Units 17:06 17:06 04:23 Sodium 136 L 140 (137-145) mmol/L Potassium 3.9 3.8 (3.6-5.0) mmol/L Chloride 95.9 L 102.5 (98-107) mmol/L Carbon Dioxide 27 29 (22-30) mmol/L BUN 6 L 5 L (7-17) mg/dL Creatinine 0.9 0.8 (0.7-1.2) mg/dL Glucose 132 H 106 H (65-100) mg/dL Hemoglobin A1c 5.3 (4-6) % Calcium 9.7 8.7 (8.4-10.2) mg/dL AST 12 (5-40) units/L ALT 11 (7-56) units/L Alkaline Phosphatase 84 (35-129) units/L Total Protein 6.7 (6.3-8.2) g/dL Albumin 3.0 L (3.9-5) g/dL Calcium panel 01/14/19 01/15/19 Range/Units 17:06 04:23 Calcium 9.7 8.7 (8.4-10.2) mg/dL Albumin 3.0 L (3.9-5) g/dL Pituitary panel 01/14/19 01/15/19 Range/Units 17:06 04:23 Sodium 136 L 140 (137-145) mmol/L Potassium 3.9 3.8 (3.6-5.0) mmol/L Chloride 95.9 L 102.5 (98-107) mmol/L Carbon Dioxide 27 29 (22-30) mmol/L BUN 6 L 5 L (7-17) mg/dL Creatinine 0.9 0.8 (0.7-1.2) mg/dL Glucose 132 H 106 H (65-100) mg/dL Calcium 9.7 8.7 (8.4-10.2) mg/dL Adrenal panel 01/14/19 01/15/19 Range/Units 17:06 04:23 Sodium 136 L 140 (137-145) mmol/L Potassium 3.9 3.8 (3.6-5.0) mmol/L Chloride 95.9 L 102.5 (98-107) mmol/L Carbon Dioxide 27 29 (22-30) mmol/L BUN 6 L 5 L (7-17) mg/dL Creatinine 0.9 0.8 (0.7-1.2) mg/dL Glucose 132 H 106 H (65-100) mg/dL Calcium 9.7 8.7 (8.4-10.2) mg/dL Total Bilirubin 0.60 (0.1-1.2) mg/dL AST 12 (5-40) units/L ALT 11 (7-56) units/L Alkaline Phosphatase 84 (35-129) units/L Total Protein 6.7 (6.3-8.2) g/dL Albumin 3.0 L (3.9-5) g/dL - Imaging CT scan - abdomen: report reviewed, image reviewed CT scan - pelvis: report reviewed, image reviewed Assessment and Plan - Patient Problems (1) Perianal abscess Current Visit: Yes Status: Acute Plan to address problem: Pt stable. Pt with large abscess on CT. Will proceed to OR today. Procedure, risks, benefits discussed. All questions answered. Consent obtained. Please call with questions. time=30min
[2019-01-15] MEDS ORDERED: ZOFRAN IV PRN (08:46)
[2019-01-15] MEDS ORDERED: SUBLIMAZE IV PRN (08:46)
[2019-01-15] MEDS ORDERED: DILAUDID IV PRN (08:46)
[2019-01-15] MEDS ORDERED: XYLOCAINE MPF 2% ONE (08:49)
[2019-01-15] MEDS ORDERED: DIPRIVAN 10 MG/ML IV ONE (08:50)
[2019-01-15] MEDS ORDERED: ZEMURON IV ONE (08:50)
--- NOTE | 2019-01-15 08:50 | Anesthesia Day of Surgery ---
Anesthesia Day of Surgery - Day of Surgery Patient Examined: Yes Patient H&P Reviewed: Yes Patient is NPO: Yes
--- NOTE | 2019-01-15 08:50 | Anesthesia Consultation ---
Anesthesia Consult and Med Hx Date of service: 01/15/19 - Airway Anesthetic Teeth Evaluation: Good, Caps ROM Head & Neck: Adequate Mental/Hyoid Distance: Adequate Mallampati Class: Class II Intubation Access Assessment: Good - Pre-Operative Health Status ASA Pre-Surgery Classification: ASA2 Proposed Anesthetic Plan: General - Pulmonary Hx Asthma: No COPD: No Hx Pneumonia: No - Central Nervous System Hx Psychiatric Problems: No - Endocrine Hx End Stage Renal Disease: No - Hematic Hx Sickle Cell Disease: No - Other Systems Hx Substance Use: Yes (MJ)
[2019-01-15] MEDS ORDERED: TYLENOL PO NR (08:51)
[2019-01-15] MEDS ORDERED: VERSED IV NR (09:00)
[2019-01-15] MEDS ORDERED: NEURONTIN PO NR (09:00)
[2019-01-15] MEDS ORDERED: XYLOCAINE 1% 20 mL ONE (09:08)
[2019-01-15] MEDS ORDERED: MARCAINE-EPI 0.5%-1:200,000 INFILTRATI ONE (09:08)
[2019-01-15] MEDS ORDERED: LACTATED RINGERS 1,000 ML ONE (09:11)
[2019-01-15] MEDS: LACTATED RINGERS 1,000 ML IV SCH ×2 (09:12→17:12)
[2019-01-15] MEDS ORDERED: MARCAINE 0.5% INFILTRATI ONE ×2 (09:16→10:30)
[2019-01-15] MEDS ORDERED: MORPHINE IV NR (09:30)
[2019-01-15] MEDS ORDERED: LOVENOX SUB-Q SCH (10:00)
[2019-01-15] MEDS ORDERED: NACL 0.9% IR ONE (10:30)
[2019-01-15] MEDS ORDERED: XYLOCAINE 1% 20 mL INFILTRATI ONE (10:30)
[2019-01-15] MEDS ORDERED: PROAIR IH ONE (10:37)
[2019-01-15] MEDS ORDERED: BLOXIVERZ ONE (10:37)
[2019-01-15] MEDS ORDERED: ZOFRAN ONE (10:37)
[2019-01-15] MEDS ORDERED: QUELICIN ONE (10:37)
[2019-01-15] MEDS ORDERED: DECADRON ONE (10:37)
[2019-01-15] MEDS ORDERED: TORADOL ONE (10:37)
[2019-01-15] MEDS ORDERED: ROBINUL ONE (10:37)
--- NOTE | 2019-01-15 10:57 | Post Operative Note ---
Date of procedure: 01/15/19 (dictation: [id number]) Pre-op diagnosis: Perianal abscess Post-op diagnosis: same Findings: large abscess cavity in the posterior midline. Appears to have chronic changes. No direct connection to anus. Procedure: I&D of perianal abscess Bilateral Pudenal Nerve Block IVF 1L EBL<10cc Anesthesia: SUE Surgeon: DEBRA DALE Estimated blood loss: minimal Pathology: list (culture swabs) Specimen disposition: to lab Condition: stable Disposition: PACU
[2019-01-15] MEDS: TORADOL IV SCH ×2 (11:49→17:10)
--- NOTE | 2019-01-15 12:43 | Post Anesthesia Evaluation ---
- Post Anesthesia Evaluation Patient Participated: Yes Airway Patent: Yes Stable Respiratory Function: Yes Nausea/Vomiting: No Temp > 96.8F: Yes Pain Manageable: Yes Adequeate Hydration: Yes Anesthesia Complications: No Block Receding Appropriately: Not Applicable Patient on Ventilator: No
[2019-01-15] MEDS: ZOSYN/NS 4.5GM/100ML 4.5 GM/100 ML VIAL IV SCH ×2 (15:00→22:27)
--- NOTE | 2019-01-15 17:44 | Event Note ---
Date: 01/15/19 Routine check - pt feeling much better. Very appreciative. Explained what we found and the plan.
--- NOTE | 2019-01-15 17:54 | Operative Report ---
PREOPERATIVE DIAGNOSIS: Perianal abscess. POSTOPERATIVE DIAGNOSIS: Perianal abscess. PROCEDURES: 1. Incision and drainage of perianal abscess. 2. Bilateral pudendal nerve blocks. ATTENDING PHYSICIAN: Sidra Castillo MD ANESTHESIA: General. ESTIMATED BLOOD LOSS: Minimal. FLUIDS: 1 liter. FINDINGS: Large abscess cavity in the posterior midline, part of the skin had already broken down. The patient had chronic inflammatory changes noted within the cavity itself. The cavity came very close to the external sphincter, difficult to tell if it involves part of the sphincter. SPECIMENS: Culture swabs. DRAINS: A 1 inch Niok drain. COMPLICATIONS: None. DISPOSITION: Stable, transferred to Recovery Room. INDICATIONS: This is a 38-year-old female who presented with severe perianal pain, began a few days ago. CT scan showed a large abscess in the perianal region. The patient was assessed to be in need for I and D. Procedure, risks, benefits were explained to the patient. Risks included but were not limited to infection, bleeding, pain, injury to surrounding structures, possible need for further procedures in the future. The patient understood and consented. OPERATIVE NOTE: The patient was brought to the operating room and anesthetized on the transport bed. Once general anesthesia was established, the patient was placed in a prone position. All pressure points were well-padded. Prone jackknife position was created. Sterile prep and drape was done, time-out was called. Antibiotics had already been given on the floor. SCDs were in place. I began by performing bilateral pudendal nerve injections. I isolated where the ischial spines were on either side. Guiding with one finger, performing the internal exam and identifying the ischial spine and then my thumb on the outside pushing down to the ischial spine, I guided the needle towards the bone. Once I touched the bone, I then pulled back and injected 10 mL of local which was a combination of 0.5% Marcaine and 1% lidocaine. Please note that as I was advancing the needle I did aspirate to make sure there was no bleeding. I performed the same procedure on the other side. No blood was aspirated. The patient tolerated the procedure well. I then proceeded to examine the perianal area. She did have a moderate size skin tag in the anterior midline. No signs of any other abnormalities noted. With that skin tags she did have some mild hemorrhoidal disease. A large fluctuant mass in the posterior midline part of the skin was already broken down. I incised this area to open it up completely and I could then probe the wound. There was initial superficial cavity, but then a deeper cavity. I made sure that there was adequate communication between the two. I broke up any loculations, adhesions, etc. I opened the skin further to make sure we had wide drainage. It was difficult to tell if the external sphincter was involved in the abscess cavity. I thoroughly irrigated out the wound and then we placed a Niko 1 inch drain in that location. I placed 2 silk sutures to secure it to either side to hopefully minimize the chance that it will fall out. Skin was cleaned and dried, dressings were placed. The patient tolerated the procedure well. There were no complications. All counts were correct at the end of the case. Please note, I did take cultures of the fluid. I did not see much purulent fluid when we opened. I think a lot of it had already drained out, but I took cultures from the deep portion of the cavity. JOB# [id number] LENORA/ELISA JACKMAN
[2019-01-16] MEDS: TORADOL IV SCH ×4 (00:08→18:14)
[2019-01-16 06:39] LABS: Hematocrit 35.2 % (30.3-42.9); Hemoglobin 11.9 gm/dl (10.1-14.3); Mean Corpuscular HGB Conc 34 % (30-34); Mean Corpuscular Volume 86 fl (79-97); Platelet Count 415 K/mm3 (140-440); Red Blood Count 4.11 M/mm3 (3.65-5.03); Red Cell Distribution Width 13.2 % (13.2-15.2)
[2019-01-16] MEDS: ZOSYN/NS 4.5GM/100ML 4.5 GM/100 ML VIAL IV SCH ×3 (07:30→21:09)
[2019-01-16] MEDS ORDERED: APRESOLINE IV ONE (07:45)
[2019-01-16] MEDS ORDERED: ALUM-MAG HYDROX-SIMETH 200-200-20MG/5ML PO ONE (08:00)
[2019-01-16] MEDS ORDERED: ALUM-MAG HYDROX-SIMETH 200-200-20MG/5ML PO PRN (09:00)
--- NOTE | 2019-01-16 09:45 | Progress Note ---
Assessment and Plan - Patient Problems (1) Perianal abscess Current Visit: Yes Status: Acute Plan to address problem: Pt stable. s/p I&D of perianal abscess (01/15/19) - POD#1 - Pt appears to be doing well. WBC still elevated. May benefit from additional IV Abx. Cultures are still pending. I spoke with NIRMALCHAUNCEY this morning to get their opinion on the opt imal way to manage her wound. They will see the patient today. Rec: 1) Ambulate 2) Cont IV Abx 3) Sitz baths at least BID Please call with questions. Subjective Date of service: 01/16/19 Patient Reports: Positive: feels better (from abscess standpoint), pain is less, other (had issue with severe heartburn last night) Objective Vital Signs - 12hr 01/16/19 01/16/19 01/16/19 00:20 04:23 07:28 Temperature 98.1 F 97.6 F Pulse Rate 51 L 72 73 Respiratory 18 18 Rate Blood Pressure 192/128 Blood Pressure 156/94 169/100 [Right] O2 Sat by Pulse 93 100 Oximetry - General physical appearance no distress, no pain, other (looks well) - Respiratory normal expansion, normal respiratory effort - Psychiatric oriented to time, oriented to person, oriented to place, speech is normal, memory intact - Labs 01/16/19 05:40 01/15/19 04:23
--- NOTE | 2019-01-16 11:06 | Progress Note ---
Assessment and Plan Assessment and plan: 38-year-old obese female with a history of a hysterectomy presents to the hospital complaints of rectal pain and swelling --perirectal abscess/sepsis s/p I&D cont antibiotics,wound care Sitz baths, surgery following --hemorrhoids high fiber diet recommended --dvt ppx- early ambulation and scds Monitor closely and adjust management as needed History Interval history: Patient seen and examined medical records reviewed Patient feels better no new complaints Vital signs noted Hospitalist Physical - Constitutional Vitals: Temp Pulse Resp BP Pulse Ox 97.9 F 93 H 18 156/84 100 01/16/19 08:40 01/16/19 08:40 01/16/19 08:40 01/16/19 08:40 01/16/19 04:23 General appearance: Present: no acute distress, well-nourished, obese (morbidly obese) - EENT Eyes: Present: PERRL, EOM intact - Neck Neck: Present: supple, normal ROM - Respiratory Respiratory effort: normal Respiratory: bilateral: diminished, negative: rales, rhonchi, wheezing - Cardiovascular Rhythm: regular Heart Sounds: Present: S1 & S2 - Extremities Extremities: no ischemia, No edema - Abdominal General gastrointestinal: soft, non-tender, non-distended, normal bowel sounds - Integumentary Integumentary: Present: clear, warm - Psychiatric Psychiatric: appropriate mood/affect, cooperative - Neurologic Neurologic: moves all extremities Results - Labs CBC & Chem 7: 01/16/19 05:40 01/15/19 04:23 Labs: Laboratory Last Values WBC 25.1 K/mm3 (4.5-11.0) H 01/16/19 05:40 RBC 4.11 M/mm3 (3.65-5.03) 01/16/19 05:40 Hgb 11.9 gm/dl (10.1-14.3) 01/16/19 05:40 Hct 35.2 % (30.3-42.9) 01/16/19 05:40 MCV 86 fl (79-97) 01/16/19 05:40 MCH 29 pg (28-32) 01/16/19 05:40 MCHC 34 % (30-34) 01/16/19 05:40 RDW 13.2 % (13.2-15.2) 01/16/19 05:40 Plt Count 415 K/mm3 (140-440) 01/16/19 05:40 Add Manual Diff Complete 01/15/19 04:23 Total Counted 100 01/15/19 04:23 Seg Neuts % (Manual) 89.0 % (40.0-70.0) H 01/15/19 04:23 0 % 01/15/19 04:23 7.0 % (13.4-35.0) L 01/15/19 04:23 Reactive Lymphs % (Man) 0 % 01/15/19 04:23 3.0 % (0.0-7.3) 01/15/19 04:23 1.0 % (0.0-4.3) 01/15/19 04:23 0 % (0.0-1.8) 01/15/19 04:23 0 % 01/15/19 04:23 0 % 01/15/19 04:23 0 % 01/15/19 04:23 0 % 01/15/19 04:23 Nucleated RBC % Not Reportable 01/15/19 04:23 Seg Neutrophils # Man 21.4 K/mm3 (1.8-7.7) H 01/15/19 04:23 Band Neutrophils # 0.0 K/mm3 01/15/19 04:23 1.7 K/mm3 (1.2-5.4) 01/15/19 04:23 Abs React Lymphs (Man) 0.0 K/mm3 01/15/19 04:23 0.7 K/mm3 (0.0-0.8) 01/15/19 04:23 0.2 K/mm3 (0.0-0.4) 01/15/19 04:23 0.0 K/mm3 (0.0-0.1) 01/15/19 04:23 0.0 K/mm3 01/15/19 04:23 0.0 K/mm3 01/15/19 04:23 0.0 K/mm3 01/15/19 04:23 Blast Cells # 0.0 K/mm3 01/15/19 04:23 WBC Morphology Not Reportable 01/15/19 04:23 Hypersegmented Neuts Not Reportable 01/15/19 04:23 Hyposegmented Neuts Not Reportable 01/15/19 04:23 Hypogranular Neuts Not Reportable 01/15/19 04:23 Not Reportable 01/15/19 04:23 Not Reportable 01/15/19 04:23 Not Reportable 01/15/19 04:23 Not Reportable 01/15/19 04:23 Not Reportable 01/15/19 04:23 Not Reportable 01/15/19 04:23 Consistent w auto 01/15/19 04:23 Not Reportable 01/15/19 04:23 Plt Clumps, EDTA Not Reportable 01/15/19 04:23 Not Reportable 01/15/19 04:23 Not Reportable 01/15/19 04:23 Not Reportable 01/15/19 04:23 Plt Morphology Comment Not Reportable 01/15/19 04:23 RBC Morphology Normal 01/15/19 04:23 Dimorphic RBCs Not Reportable 01/15/19 04:23 Not Reportable 01/15/19 04:23 Not Reportable 01/15/19 04:23 Not Reportable 01/15/19 04:23 Not Reportable 01/15/19 04:23 Not Reportable 01/15/19 04:23 Not Reportable 01/15/19 04:23 Not Reportable 01/15/19 04:23 Not Reportable 01/15/19 04:23 Not Reportable 01/15/19 04:23 Not Reportable 01/15/19 04:23 Not Reportable 01/15/19 04:23 Not Reportable 01/15/19 04:23 Not Reportable 01/15/19 04:23 Not Reportable 01/15/19 04:23 Not Reportable 01/15/19 04:23 Not Reportable 01/15/19 04:23 Not Reportable 01/15/19 04:23 Not Reportable 01/15/19 04:23 Not Reportable 01/15/19 04:23 Acanthocytes (Spur) Not Reportable 01/15/19 04:23 Rouleaux Not Reportable 01/15/19 04:23 Not Reportable 01/15/19 04:23 Not Reportable 01/15/19 04:23 Not Reportable 01/15/19 04:23 Not Reportable 01/15/19 04:23 Hem Pathologist Commnt No 01/15/19 04:23 VBG pH 7.458 (7.320-7.420) H 01/14/19 17:35 Sodium 140 mmol/L (137-145) 01/15/19 04:23 Potassium 3.8 mmol/L (3.6-5.0) 01/15/19 04:23 Chloride 102.5 mmol/L (98-107) 01/15/19 04:23 Carbon Dioxide 29 mmol/L (22-30) 01/15/19 04:23 12 mmol/L 01/15/19 04:23 BUN 5 mg/dL (7-17) L 01/15/19 04:23 0.8 mg/dL (0.7-1.2) 01/15/19 04:23 Estimated GFR > 60 ml/min 01/15/19 04:23 6 % 01/15/19 04:23 Glucose 106 mg/dL (65-100) H 01/15/19 04:23 5.3 % (4-6) 01/14/19 17:06 Lactic Acid 0.90 mmol/L (0.7-2.0) 01/14/19 20:04 Calcium 8.7 mg/dL (8.4-10.2) 01/15/19 04:23 0.60 mg/dL (0.1-1.2) 01/15/19 04:23 AST 12 units/L (5-40) 01/15/19 04:23 ALT 11 units/L (7-56) 01/15/19 04:23 84 units/L (35-129) 01/15/19 04:23 6.7 g/dL (6.3-8.2) 01/15/19 04:23 3.0 g/dL (3.9-5) L 01/15/19 04:23 0.8 % 01/15/19 04:23 Active Medications - Current Medications Current Medications: Generic Name Dose Route Start Last Admin Trade Name Freq PRN Reason Stop Dose Admin Acetaminophen 650 mg 01/14/19 20:11 Tylenol PO Q4H PRN Pain MILD(1-3)/Fever >100.5/GANT Al Hydrox/Mg Hydrox/Simethicone 30 ml 01/16/19 09:00 Alum-Mag Hydrox-Simeth 349-037-29gn/5ml PO ONCE PRN Dyspepsia Hydromorphone HCl 0.5 mg 01/14/19 20:11 01/15/19 00:08 Dilaudid IV 0.5 mg Q3H PRN Administration Pain , Severe (7-10) Sodium Chloride 1,000 mls @ 75 mls/hr 01/14/19 23:45 01/15/19 00:10 Nacl 0.45% 1000 Ml IV 75 mls/hr DIRECT NADYA Administration Lactated Ringer's 1,000 mls @ 125 mls/hr 01/15/19 09:00 01/15/19 17:12 Lactated Ringers IV 125 mls/hr DIRECT NADYA Administration Piperacillin Sod/Tazobactam Sod 4.5 gm in 100 mls @ 200 mls/hr 01/15/19 14:00 01/16/19 07:30 Zosyn/Ns 4.5gm/100ml IV 200 mls/hr Q8HR NADYA Administration Protocol Ketorolac Tromethamine 30 mg 01/15/19 12:00 01/16/19 07:28 Toradol IV 01/20/19 11:59 30 mg Q6HR NADYA Administration Ondansetron HCl 4 mg 01/14/19 20:11 Zofran IV Q3H PRN Nausea And Vomiting Oxycodone/Acetaminophen 1 tab 01/14/19 20:11 Percocet 5/325 PO Q6H PRN Pain, Moderate (4-6) Sodium Chloride 10 ml 01/14/19 22:00 01/15/19 22:28 Sodium Chloride Flush Syringe 10 Ml IV 10 ml BID NADYA Administration Sodium Chloride 10 ml 01/14/19 20:11 Sodium Chloride Flush Syringe 10 Ml IV PRN PRN LINE FLUSH
[2019-01-16] MEDS ORDERED: DOMEBORO PACKET TP PRN (14:45)
[2019-01-16] MEDS: SODIUM CHLORIDE FLUSH SYRINGE 10 ML IV SCH ×2 (18:16→21:09)
[2019-01-17] MEDS: TORADOL IV SCH ×3 (01:29→12:00)
[2019-01-17] MEDS: LACTATED RINGERS 1,000 ML IV SCH (03:53)
[2019-01-17] MEDS: ZOSYN/NS 4.5GM/100ML 4.5 GM/100 ML VIAL IV SCH (06:08)
--- NOTE | 2019-01-17 08:55 | Progress Note ---
Assessment and Plan - Patient Problems (1) Perianal abscess Current Visit: Yes Status: Acute Plan to address problem: Pt stable. s/p I&D of perianal abscess (01/15/19) - POD#2 - Pt appears to be doing well. WBC still elevated. Cultures are still pending. Appreciate WOCN eval and management. Ok to d/c home from my perspective. Rec: 1) PO Abx to complete 10 day course 2) Mesalt packing to the wound QOD and prn after BM. 3) Sitz baths after BMs 4) f/u with me in [facility]ound [facility] next week Tuesday Please call with questions. Subjective Date of service: 01/17/19 Patient Reports: Positive: no new complaints, feels better, pain is less, tolerating a regular diet Objective Vital Signs - 12hr 01/16/19 01/17/19 01/17/19 22:00 00:27 05:14 Temperature 98.0 F 98.2 F Pulse Rate 73 67 Respiratory 18 16 Rate Respiratory 18 Rate [RECTAL PAIN] Blood Pressure 162/100 152/88 O2 Sat by Pulse 93 99 Oximetry 01/17/19 06:08 Temperature Pulse Rate Respiratory 18 Rate Respiratory Rate [RECTAL PAIN] Blood Pressure O2 Sat by Pulse Oximetry - General physical appearance no distress, no pain, other (looks well) - Eyes normal occular movement - Respiratory normal expansion, normal respiratory effort - Psychiatric oriented to time, oriented to person, oriented to place, speech is normal, memory intact - Labs 01/16/19 05:40 01/15/19 04:23
[2019-01-17] MEDS ORDERED: APRESOLINE PO ONE (11:21)
[2019-01-17] MEDS: APRESOLINE PO ONE ×2 (12:02→15:24)
[2019-01-17 12:47] VITALS: BP 137/79
[2019-01-17] MEDS: DILAUDID IV PRN (13:46)
--- NOTE | 2019-01-17 13:50 | Discharge Summary ---
Providers - Providers Date of Admission: 01/14/19 20:11 Date of discharge: 01/17/19 Attending physician: MINDA SUE 01/14/19 20:11 Consult to Physician [CONS] Urgent Comment: Consulting Provider: DEBRA DALE Physician Instructions: Reason For Exam: perianal abscess 01/14/19 20:15 Consult to Physician [CONS] Routine Comment: Consulting Provider: DEBRA DALE Physician Instructions: Reason For Exam: perianal abscess 01/15/19 10:43 Consult to Wound/ET Nurse [CONS] Routine Reason For Exam: wound eval [facility] Condition: Stable Disposition: DC-01 TO HOME OR SELFCARE Time spent for discharge: 32 min Exam - Constitutional Vitals: Temp Pulse Resp BP Pulse Ox 98.0 F 59 L 20 137/79 100 01/17/19 06:54 01/17/19 06:54 01/17/19 06:54 01/17/19 06:54 01/17/19 06:54 Plan Additional Instructions: Mesalt packing to the wound QOD and prn after BM. Sitz baths after BMs. f/u with in Wound Clinic next week 01/26/19Tuesday Follow up with: OLIVIA MONTOYAGRAND MOUND MD KOJO [Primary Care Provider] - 3-5 Days DEBRA DALE MD [Staff Physician] - 01/26/19 Prescriptions: Amoxicillin/Potassium Clav [Augmentin 875-125 Tablet] 1 each PO BID #14 tablet Calcium Acetate/Aluminum Sulf [[place] Packet] 1 each TP Q8HR PRN #30 packet PRN Reason: Bowel Movement (CLEANSING) Ketorolac [Toradol] 10 mg PO Q6H PRN #20 tablet PRN Reason: Pain
== END 2019-01-17 17:00 | disposition home or self-care (01) | DRG 854 ==
LOC: ED 15:26 → 3B-SURG 20:11
PROVIDERS: ADMIT Internal Medicine; ATTEND Internal Medicine
PROC: 0D9Q0ZZ Drainage of Anus, Open Approach (ICD-10-PCS; principal; 2019-01-15)
DX: A41.9 Sepsis, unspecified organism (principal); K61.0 Anal abscess; E87.1 Hypo-osmolality and hyponatremia; E44.0 Moderate protein-calorie malnutrition; Z68.41 Body mass index [BMI] 40.0-44.9, adult; K64.9 Unspecified hemorrhoids; F12.90 Cannabis use, unspecified, uncomplicated; Z90.710 Acquired absence of both cervix and uterus; Z82.49 Family history of ischemic heart disease and other diseases of the circulatory system
CPT/HCPCS: 36415; 74177; 80048; 80053; 82140; 82805; 83036; 85007; 85025; 85027; 87040; 87075; 87076; 87116; 87186; 93005; 93010; 96361; 96365; 96375; G0378; J0330; J0360; J1100; J1170; J1885; J2250; J2270; J2405; J2543; J2704; J2710; J3010; J3370; J7030; J7120; Q9967